=== PATIENT | female | born 1990 | race Caucasian/White ===

== ENCOUNTER 2025-08-30 23:11 | Inpatient (IN) | payer BC, MEDICAID ==
[2025-08-30] MEDS ORDERED: Sodium Chloride 0.9% 10 ML Syringe FLUSH PRN (23:42)
[2025-08-30] MEDS ORDERED: Lactated Ringers 1,000 ML IV ONE (23:42)
[2025-08-30] MEDS ORDERED: Carboprost Tromethamine 250 MCG/1 mL Vial IM PRN (23:42)
[2025-08-30] MEDS ORDERED: Ondansetron 4 MG/2 ML SDV IVPUSH PRN (23:42)
[2025-08-30 23:50] LABS: PLATELET COUNT,PLT 186.0 10^3/uL (150-450); RED BLOOD CELL COUNT 4.02 10^6/uL (4.2-5.4); WHITE BLOOD CELL COUNT,WBC 8.5 10^3/uL (5.0-10.0)
[2025-08-31] MEDS: Penicillin G Potassium 5 MILLUNITS in Sodium Chloride 0.9% 100 ML IV ONE (00:03)
[2025-08-31] MEDS: Lactated Ringers 1,000 ML IV SCH (00:05)
[2025-08-31] MEDS: Penicillin G Potassium 3 MILLUNITS in Sodium Chloride 0.9% 100 ML IV SCH (03:00)
[2025-08-31] MEDS: Oxytocin/Lactated Ringers 30 UNIT/500 ML BAG IV SCH (05:50)
[2025-08-31] MEDS ORDERED: Witch Hazel Medicated Pads 100/Jar TOP PRN (06:13)
[2025-08-31] MEDS ORDERED: Oxytocin 10 Units/1 ML SDV IM PRN (06:13)
[2025-08-31] MEDS ORDERED: Benzocaine/Menthol 20%-0.5% Spray 78 GM Cannister TOP PRN (06:13)
[2025-08-31] MEDS: Prenatal Multivitamin with Calcium/Folic Acid/Iron Tab PO SCH (11:24)
[2025-09-01 06:23] LABS: PLATELET COUNT,PLT 136.0 10^3/uL (150-450); RED BLOOD CELL COUNT 3.63 10^6/uL (4.2-5.4); WHITE BLOOD CELL COUNT,WBC 10.0 10^3/uL (5.0-10.0)
== END 2025-09-01 10:15 | disposition home or self-care (01) | DRG 807 ==
LOC: DL.OBCHECK 23:11 → DL.OB 23:46 → OBSVTOIN 08-31 05:41
PROVIDERS: ADMIT Family Medicine; ATTEND Family Medicine
PROC: 10E0XZZ Delivery of Products of Conception, External Approach (ICD-10-PCS; principal; 2025-08-31)
PROC: 10907ZC Drainage of Amniotic Fluid, Therapeutic from Products of Conception, Via Natural or Artificial Opening (ICD-10-PCS; 2025-08-31)
PROC: 3E033VJ Introduction of Other Hormone into Peripheral Vein, Percutaneous Approach (ICD-10-PCS; 2025-08-31)
PROC: 3E0DXGC Introduction of Other Therapeutic Substance into Mouth and Pharynx, External Approach (ICD-10-PCS; 2025-08-31)
PROC: 3E03329 Introduction of Other Anti-infective into Peripheral Vein, Percutaneous Approach (ICD-10-PCS; 2025-08-31)
PROC: 4A0HXCZ Measurement of Products of Conception, Cardiac Rate, External Approach (ICD-10-PCS; 2025-08-31)
DX: O99.824 Streptococcus B carrier state complicating childbirth (principal); Z3A.39 39 weeks gestation of pregnancy; Z37.0 Single live birth; O67.8 Other intrapartum hemorrhage
CPT/HCPCS: 36415; 59409; 85027; A9270-GY; J2540; J2590; J7120